=== PATIENT | female | born 1990 | race Caucasian/White ===

== ENCOUNTER 2021-05-24 21:44 | Inpatient (IN) ==
[2021-05-24] MEDS ORDERED: Dinoprostone 10 MG VAG.SUPP VAGINAL ONE (21:45)
[2021-05-24] MEDS ORDERED: Buffered Lidocaine 1% SYRIN 1 ml INTRADERM ONE (21:45)
[2021-05-24] MEDS ORDERED: Lactated Ringers 1000 ml BAG 1,000 ML IV ONE (21:45)
[2021-05-24] MEDS ORDERED: Lactated Ringers 1000 ml BAG 1,000 ML IV SCH (22:00)
[2021-05-24 23:03] LABS: Urine Benzodiazepine Screen None Detected (None Detect); Urine Cannabinoids Screen None Detected (None Detect); Urine Opiates Screen None Detected (None Detect)
[2021-05-25] MEDS ORDERED: Flu vaccine *QUAD* 2021-22* 0.5 ML SYRINGE IM ONE (09:00)
[2021-05-25] MEDS ORDERED: Oxytocin in LR 20 UNITS/1,000 ML BAG IVPB SCH (12:30)
[2021-05-25 13:19] LABS: Hematocrit 39 % (35-47); Hemoglobin 13.1 g/dL (12.0-16.0); Mean Corpuscular HGB Conc 33 g/dL (31-36); Mean Corpuscular Hemoglobin 27 pg (27-31); Mean Corpuscular Volume 80 fL (80-97); Mean Platelet Volume 9.7 fL (7.4-10.4); Platelet Count 215 10^3/uL (150-450); Red Blood Count 4.93 10^6 /uL (3.70-4.87); Red Cell Distribution Width 16 % (10-15); White Blood Count 9.6 10^3/uL (3.5-10.8)
[2021-05-25] MEDS ORDERED: OBEPIDURAL 250 ML EPIDURAL ONE (18:10)
[2021-05-25] MEDS ORDERED: EPHEDrine (Pressors) 50 MG/ML VIAL IV PUSH PRN ×2 (19:13)
[2021-05-25] MEDS ORDERED: Sodium Citrate/Citric Acid LIQ 15 ML UDC PO PRN (19:13)
[2021-05-25] MEDS ORDERED: Phenylephrine 40 mcg/mL 10mL (400mcg) SYRINGE IV PUSH PRN ×2 (19:13)
[2021-05-25] MEDS ORDERED: Lactated Ringers 1000 ml BAG 500 ML IV PRN ×2 (19:13)
[2021-05-25] MEDS ORDERED: Lactated Ringers 1000 ml BAG 1,000 ML IV ONE (19:13)
[2021-05-25] MEDS ORDERED: OBEPIDURAL 250 ML EPIDURAL SCH (20:00)
[2021-05-25] MEDS ORDERED: Lactated Ringers 1000 ml BAG 1,000 ML IV SCH (20:00)
[2021-05-25 20:38] LABS: Urine Appearance Cloudy; Urine Bilirubin Negative (Negative); Urine Blood Negative (Negative); Urine Color Yellow; Urine Glucose 2+(150 mg/dL) (Negative); Urine Ketones Negative (Negative); Urine Nitrite Negative (Negative); Urine Protein Negative (Negative); Urine Specific Gravity 1.019 (1.002-1.030); Urine Urobilinogen Negative (Negative)
[2021-05-25] MEDS ORDERED: ceFOXitin 2 GM IVPREMIX 2 GM/50 ML BAG IVPB ONE (22:43)
[2021-05-25] MEDS ORDERED: Oxytocin 10 UNITS/ML 1 ML VIAL ONE (22:44)
[2021-05-25] MEDS ORDERED: Ondansetron 4 mg VIAL 2 MG/ML 2 ml VIAL ONE ×2 (22:44→23:49)
[2021-05-25] MEDS ORDERED: Phenylephrine 40 mcg/mL 10mL (400mcg) SYRINGE ONE (22:44)
[2021-05-25] MEDS ORDERED: EPHEDrine (Pressors) 50 MG/ML VIAL ONE (22:45)
[2021-05-25] MEDS ORDERED: Morphine PF AMP (0.5MG/ML) 5 MG/10 ML AMP ONE (23:06)
[2021-05-25] MEDS ORDERED: Phenylephrine 1% NASAL 15 ML BOT ONE (23:42)
[2021-05-26] MEDS ORDERED: Prochlorperazine 5 mg/ml 2 ml VIAL (10 mg) IV PRN (00:04)
[2021-05-26] MEDS ORDERED: diPHENhydraMINE IV 50 MG/ML 1 ml VIAL (BENADRYL) IV PRN (00:04)
[2021-05-26] MEDS ORDERED: Naloxone 0.4 mg VIAL 0.4 mg/ml 1 ml VIAL IV PRN (00:04)
[2021-05-26] MEDS ORDERED: DiMENhydriNATE IV 50 mg/ml 1 ml VIAL IV PUSH PRN (00:04)
[2021-05-26] MEDS ORDERED: Ondansetron 4 mg VIAL 2 MG/ML 2 ml VIAL IV PRN (00:04)
[2021-05-26] MEDS ORDERED: Acetaminophen IV 1 GM/100ML 100 ML IV PRN (00:06)
[2021-05-26] MEDS ORDERED: Witch Hazel PAD JAR TOPICAL PRN (00:21)
[2021-05-26] MEDS ORDERED: Glycerin ADULT 2.4 gm SUPP PR PRN (00:21)
[2021-05-26] MEDS ORDERED: Lactated Ringers 1000 ml BAG 1,000 ML IV SCH (01:00)
[2021-05-26 08:28] LABS: ABS Basophils 0.1 10^3/ul (0-0.2); ABS Eosinophils 0.1 10^3/ul (0-0.6); ABS Lymphocytes 1.4 10^3/ul (1.0-4.8); ABS Monocytes 0.7 10^3/ul (0-0.8); ABS Neutrophils 9.9 10^3/ul (1.5-7.7); Eosinophil % 0.9 %; Hematocrit 33 % (35-47); Lymphocyte % 11.2 %; Mean Corpuscular HGB Conc 33 g/dL (31-36); Mean Corpuscular Hemoglobin 26 pg (27-31); Mean Corpuscular Volume 80 fL (80-97); Mean Platelet Volume 9.1 fL (7.4-10.4); Platelet Count 176 10^3/uL (150-450); Red Blood Count 4.19 10^6 /uL (3.70-4.87); Red Cell Distribution Width 16 % (10-15); White Blood Count 12.2 10^3/uL (3.5-10.8)
[2021-05-27] MEDS ORDERED: Flu vaccine *QUAD* 2021-22* 0.5 ML SYRINGE IM ONE (14:55)
[2021-05-28 07:45] VITALS: BP 127/86
== END 2021-05-28 12:35 | disposition home or self-care (01) | DRG 540 ==
LOC: MCHOBOUT 21:44 → MCHOB 22:15
PROVIDERS: ADMIT Midwife; ATTEND Midwife

== ENCOUNTER 2023-07-29 05:40 | Inpatient (IN) ==
[2023-07-29] MEDS ORDERED: ceFOXitin 2 GM IVPREMIX 2 GM/50 ML BAG IVPB ONE (05:43)
[2023-07-29] MEDS ORDERED: Lactated Ringers 1000 ml BAG 1,000 ML IV ONE (05:43)
[2023-07-29] MEDS ORDERED: Sodium Citrate/Citric Acid LIQ 15 ML UDC PO ONE (05:43)
[2023-07-29] MEDS ORDERED: Buffered Lidocaine 1% SYRIN 1 ml INTRADERM ONE (05:43)
[2023-07-29] MEDS ORDERED: Lactated Ringers 1000 ml BAG 1,000 ML IV SCH ×2 (06:00→11:00)
[2023-07-29 07:03] LABS: Hematocrit 35.1 % (35-45); Hemoglobin 11.6 g/dL (11.5-14.3); Mean Corpuscular Hemoglobin 24.7 pg (27-33); Mean Corpuscular Volume 74.7 fL (80-97); Mean Platelet Volume 9.6 fL (7.5-11.2); Platelet Count 196 10^3/uL (150-450); Red Cell Distribution Width 16.1 % (12-17); White Blood Count 9.3 10^3/uL (3.8-11.8)
[2023-07-29] MEDS ORDERED: Dexamethasone IV 4 MG/ML VIAL 1 ml VIAL ONE (07:09)
[2023-07-29] MEDS ORDERED: Oxytocin 10 UNITS/ML 1 ML VIAL ONE (07:09)
[2023-07-29] MEDS ORDERED: Sterile Water for Inj 10 ML ONE (07:09)
[2023-07-29] MEDS ORDERED: Morphine PF AMP (0.5MG/ML) 5 MG/10 ML AMP ONE (07:09)
[2023-07-29] MEDS ORDERED: Ondansetron 4 mg VIAL 2 MG/ML 2 ml VIAL ONE ×2 (07:09→07:48)
[2023-07-29 07:18] LABS: ABS Eosinophils 0.2 10^3/uL (0.0-0.5); ABS Lymphocytes 2.2 10^3/uL (1.0-4.8); ABS Monocytes 0.7 10^3/uL (0.0-0.9); ABS Neutrophils 6.2 10^3/uL (1.5-7.6); ABS Nucleated RBC 0.01 10^3/ul; Eosinophil % 2.3 %; Lymphocyte % 23.1 %; Microcytosis 1+; Nucleated Red Blood Cells % 0.1 %/100WBC (0.0-0.8)
[2023-07-29] MEDS ORDERED: Phenylephrine 40 mcg/mL 10mL (400mcg) SYRINGE ONE ×3 (07:18→08:40)
[2023-07-29] MEDS ORDERED: Sevoflurane BOTTLE ONE (07:18)
[2023-07-29] MEDS ORDERED: Ondansetron 4 mg VIAL 2 MG/ML 2 ml VIAL IV PRN (08:26)
[2023-07-29] MEDS ORDERED: Metoclopramide 5 MG/ML VIAL (10 mg) IV PRN (08:26)
[2023-07-29] MEDS ORDERED: Naloxone 0.4 mg VIAL 0.4 mg/ml 1 ml VIAL IV PUSH PRN (08:26)
[2023-07-29] MEDS ORDERED: Acetaminophen IV 1 GM/100ML 1,000 MG/100 ML BAG IV PRN (08:26)
[2023-07-29 09:06] LABS: Urine Appearance Clear; Urine Bilirubin Negative (Negative); Urine Blood Negative (Negative); Urine Color Straw; Urine Glucose Negative (Negative); Urine Ketones Trace (Negative); Urine Nitrite Negative (Negative); Urine Protein Negative (Negative); Urine Specific Gravity 1.002 (1.002-1.030); Urine Urobilinogen Negative (Negative)
[2023-07-29] MEDS ORDERED: fentaNYL 100 mcg/2 ml 50 MCG/ML VIAL ONE (09:10)
[2023-07-29 09:34] LABS: Urine Benzodiazepine Screen None Detected (None Detect); Urine Cannabinoids Screen None Detected (None Detect); Urine Opiates Screen None Detected (None Detect)
[2023-07-29] MEDS ORDERED: Glycerin ADULT 2.4 gm SUPP PR PRN (10:07)
[2023-07-29] MEDS ORDERED: Witch Hazel PAD JAR TOPICAL PRN (10:07)
[2023-07-29] MEDS: Oxytocin in LR 20,000 MILLI.UNIT/1,000 ML BAG IV SCH ×2 (10:56→17:25)
[2023-07-29] MEDS: Mometasone 220 MCG MDI INH SCH (19:00)
[2023-07-30 06:48] LABS: ABS Eosinophils 0.2 10^3/uL (0.0-0.5); ABS Lymphocytes 1.5 10^3/uL (1.0-4.8); ABS Monocytes 0.6 10^3/uL (0.0-0.9); ABS Neutrophils 6.7 10^3/uL (1.5-7.6); Eosinophil % 2.4 %; Hemoglobin 9.8 g/dL (11.5-14.3); Lymphocyte % 16.9 %; Mean Corpuscular Hemoglobin 25.4 pg (27-33); Mean Corpuscular Hgb Conc 33.7 g/dL (31-36); Mean Corpuscular Volume 75.5 fL (80-97); Mean Platelet Volume 9.3 fL (7.5-11.2); Platelet Count 175 10^3/uL (150-450); Red Blood Count 3.83 10^6/uL (3.63-4.92); Red Cell Distribution Width 16.3 % (12-17); White Blood Count 9.1 10^3/uL (3.8-11.8)
[2023-07-30] MEDS: Mometasone 220 MCG MDI INH SCH (19:56)
[2023-07-31 10:19] VITALS: BP 125/72
== END 2023-07-31 13:42 | disposition home or self-care (01) | DRG 540 ==
LOC: MCHOB 05:40
PROVIDERS: ADMIT Obstetrics & Gynecology; ATTEND Obstetrics & Gynecology